=== PATIENT | male | born 1985 | race Caucasian/White ===

== ENCOUNTER 2018-06-03 08:49 | Day surgery (SDC) | payer BC ==
[2018-06-03 09:24] LABS: BASOPHILS % (AUTO) 0.4 %; BILIRUBIN,URINE NEGATIVE (NEGATIVE); EOSINOPHILS # (AUTO) 0.1 10^3/uL (0.0-0.7); EOSINOPHILS % (AUTO) 0.6 %; GLUCOSE, URINE (UA) NEGATIVE (NEGATIVE); HGB - HEMOGLOBIN 15.7 g/dL (14.0-18.0); KETONES,URINE (UA) NEGATIVE (NEGATIVE); LEUKOCYTE ESTERASE, URINE NEGATIVE (NEGATIVE); LYMPHOCYTES # (AUTO) 1.6 10^3/uL (1.5-3.5); LYMPHOCYTES % (AUTO) 16.2 %; MEAN CORPUSCULAR HEMOGLOBIN 31.5 pg (27.0-31.0); MEAN CORPUSCULAR HGB CONC 34.9 g/dL (32.0-36.0); MEAN CORPUSCULAR VOLUME 90.4 fL (80.0-94.0); MONOCYTES # (AUTO) 0.5 10^3/uL (0.0-1.0); MONOCYTES % (AUTO) 5.4 %; NEUTROPHILS # (AUTO) 7.8 10^3/uL (1.5-6.6); NEUTROPHILS % (AUTO) 77.4 %; NITRITE,URINE POSITIVE (NEGATIVE); OCCULT BLOOD,URINE NEGATIVE (NEGATIVE); PLT - PLATELET COUNT 186 10^3/uL (130-450); PROTEIN,URINE NEGATIVE (NEGATIVE); RED BLOOD COUNT 4.96 10^6/uL (4.70-6.10); RED CELL DISTRIBUTION WIDTH 13.8 % (12.0-15.0); UROBILINOGEN,URINE 0.2 (NORMAL) E.U./dL (NORMAL)
[2018-06-03 09:35] LABS: CLARITY,URINE CLEAR (CLEAR)
[2018-06-03 09:38] LABS: BACTERIA,URINE Rare /HPF (None Seen); RBC,URINE None Seen /HPF (0-5); SQUAMOUS EPITHELIAL CELL,UR NONE SEEN (<= Few)
[2018-06-03 09:40] LABS: ALBUMIN 4.7 g/dL (3.2-5.5); ALBUMIN/GLOBULIN RATIO 1.3 (1.0-2.2); BILIRUBIN,TOTAL 0.9 mg/dL (0.2-1.0); CALCIUM 9.4 mg/dL (8.5-10.3); CREATININE 0.9 mg/dL (0.6-1.2); TOTAL PROTEIN 8.4 g/dL (6.7-8.2)
[2018-06-03] MEDS ORDERED: SODIUM CHLORIDE 0.9% 1,000 ML IV ONE ×2 (10:42→13:40)
--- NOTE | 2018-06-03 10:45 | ED Physician Documentation ---
PD HPI ABD PAIN - Stated complaint Stated Complaint: ABD PX - Chief complaint Chief Complaint: Abd Pain - History obtained from History obtained from: Patient - History of Present Illness Timing - onset: How many days ago (2) Timing - duration: Days (2) Timing - details: Gradual onset Quality: Pain Location: RLQ Worsened by: Moving Associated symptoms: Fever. No: Vomiting, Diarrhea, Dysuria Similar symptoms before: Has not had sx before - Additional information Additional information: The patient is an otherwise healthy 32-year-old male who presents with right lower quadrant abdominal pain. 2 days ago he had abdominal discomfort that he described as "indigestion." The pain became worse yesterday and became localized in the right lower quadrant. He had associated fever. Pain continues this morning in the right lower quadrant. He denies nausea, vomiting, diarrhea, or dysuria. The pain is worse with cough or with movement. He last tried eating last night between 8 and 10 PM. He drank a glass of water this morning at 7 AM. He's had no abdominal surgery. He does not smoke cigarettes. Review of Systems Constitutional: reports: Fever Nose: denies: Congestion Throat: denies: Sore throat Cardiac: denies: Chest pain / pressure Respiratory: denies: Dyspnea, Cough GI: reports: Abdominal Pain. denies: Nausea, Vomiting, Diarrhea : denies: Dysuria Skin: denies: Rash Musculoskeletal: denies: Back pain Neurologic: denies: Focal weakness, Headache PD PAST MEDICAL HISTORY - Past Medical History Cardiovascular: None Endocrine/Autoimmune: None GI: None - Present Medications Home Medications: Ambulatory Orders Medication Instructions Recorded Confirmed No Known Home Medications 06/03/18 06/03/18 - Allergies Allergies/Adverse Reactions: Allergies Allergy/AdvReac Type Severity Reaction Status Date / Time No Known Drug Allergies Allergy Verified 06/03/18 09:06 PD ED PE NORMAL - Vitals Vital signs reviewed: Yes (borderline systolic hypertension) - General General: Alert and oriented X 3, Well developed/nourished - HEENT HEENT: Atraumatic, Moist mucous membranes, Pharynx benign - Neck Neck: No adenopathy, No JVD - Cardiac Cardiac: RRR, No murmur - Respiratory Respiratory: No respiratory distress, Clear bilaterally - Abdomen Abdomen: Normal bowel sounds, Soft, No organomegaly, Other (Tenderness to palpation in the right lower quadrant, without rebound.) - Back Back: No CVA TTP - Derm Derm: No rash - Extremities Extremities: No edema, No calf tenderness / cord - Neuro Neuro: Alert and oriented X 3, No motor deficit, Normal speech Results - Vitals Vitals: Vital Signs - 24 hr 06/03/18 06/03/18 06/03/18 09:04 11:33 14:44 Temperature 35.8 C L 36.4 C L 37 C Heart Rate 81 73 71 Respiratory 16 15 16 Rate Blood Pressure 138/71 H 126/66 122/81 H O2 Saturation 99 98 99 06/03/18 06/03/18 06/03/18 14:50 14:53 14:59 Temperature Heart Rate 68 71 Respiratory 17 14 Rate Blood Pressure 135/68 H 131/69 H 133/66 H O2 Saturation 100 100 06/03/18 06/03/18 06/03/18 15:05 15:09 15:15 Temperature Heart Rate 70 70 77 Respiratory 18 14 18 Rate Blood Pressure 129/69 126/68 126/65 O2 Saturation 100 100 99 06/03/18 06/03/18 06/03/18 15:24 15:30 15:45 Temperature 37 C Heart Rate 68 72 62 Respiratory 16 18 15 Rate Blood Pressure 119/64 126/70 127/65 O2 Saturation 97 98 96 06/03/18 16:00 Temperature 36.8 C Heart Rate 76 Respiratory 15 Rate Blood Pressure 124/64 O2 Saturation 99 Oxygen O2 Source Room air - Labs Labs: Laboratory Tests 06/03/18 06/03/18 06/03/18 09:18 09:18 09:18 WBC 10.0 RBC 4.96 Hgb 15.7 Hct 44.9 MCV 90.4 MCH 31.5 H MCHC 34.9 RDW 13.8 Plt Count 186 MPV 9.0 Neut # (Auto) 7.8 H Lymph # (Auto) 1.6 [place] # (Auto) 0.5 Eos # (Auto) 0.1 Baso # (Auto) 0.0 Absolute Nucleated RBC 0.00 Nucleated RBC % 0.0 Sodium 139 Potassium 3.9 Chloride 102 Carbon Dioxide 28 Anion Gap 9.0 BUN 14 Creatinine 0.9 Estimated GFR (MDRD) 97 Glucose 102 H Calcium 9.4 Total Bilirubin 0.9 AST 22 ALT 21 Alkaline Phosphatase 58 Total Protein 8.4 H Albumin 4.7 Globulin 3.7 Albumin/Globulin Ratio 1.3 Lipase 25 Urine Color YELLOW Urine Clarity CLEAR Urine pH 6.0 Ur Specific [place] <=1.005 Urine Protein NEGATIVE Urine Glucose (UA) NEGATIVE Urine Ketones NEGATIVE Urine Occult Blood NEGATIVE Urine Nitrite POSITIVE H Urine Bilirubin NEGATIVE Urine Urobilinogen 0.2 (NORMAL) Ur Leukocyte Esterase NEGATIVE Urine RBC None Seen Urine WBC 0-3 Ur Squamous Epith Cells NONE SEEN Urine Bacteria Rare Ur Microscopic Review INDICATED Urine Culture Comments INDICATED - Rads (name of study) CT abd/pelvis Radiology: Prelim report reviewed, EMP read contemporaneously, See rad report (Acute appendicitis with a 5-6 mm appendicolith in the proximal appendix. No abscess or free air.) PD MEDICAL DECISION MAKING - ED course Complexity details: reviewed results, re-evaluated patient, considered differential, d/w patient, d/w business sales consultant ED course: The patient's presentation is significant for acute appendicitis, without abscess or perforation seen on CT scan of the abdomen. Treatment in the emergency department included administration of normal saline IV, and Zosyn 3.375 g IV. He declined treatment with pain medication or antiemetic. I discussed his condition with Dr. Vidal who is on-call for general surgery. He evaluated the patient in the emergency department and took him to the operating room for operative intervention. Departure - Departure Disposition: ED Transfer to [facility] Clinical Impression: Acute appendicitis Qualifiers: Acute appendicitis type: unspecified acute appendicitis type Qualified Code(s): K35.80 - Unspecified acute appendicitis Condition: Stable Discharge Date/Time: 06/03/18 13:42
[2018-06-03] MEDS ORDERED: IOPAMIDOL-300 100 ML VIAL ONE (10:56)
[2018-06-03] MEDS ORDERED: IOPAMIDOL-300 100 ML VIAL IVP ONE (11:09)
--- NOTE | 2018-06-03 11:44 | CT Report ---
Reason: RLQ abdominal pain Procedure Date: 06/03/2018 Accession Number: [id number] / [id number] Procedure: CT - Abdomen/Pelvis W/ CPT Code: FULL RESULT: EXAM: CT ABDOMEN AND PELVIS EXAM DATE: 06/03/2018 11:10 AM. CLINICAL HISTORY: Right lower quadrant pain and fever. COMPARISONS: None. TECHNIQUE: Routine helical CT imaging was performed through the abdomen and pelvis. IV contrast: ISOVUE 300 100mL. Enteric contrast: No. Reconstructions: Coronal and sagittal. In accordance with CT protocol optimization, one or more of the following dose reduction techniques were utilized for this exam: automated exposure control, adjustment of mA and/or KV based on patient size, or use of iterative reconstructive technique. FINDINGS: Lung Bases: Unremarkable. Liver: Normal. No masses. Gallbladder/Bile Ducts: Unremarkable. Spleen: Normal. Pancreas: Normal. Adrenal Glands: Normal. Kidneys: Normal. No masses or hydronephrosis. Peritoneal Cavity/Bowel: Stomach is mildly distended and unremarkable. No small bowel obstruction. No free air. Small fatty umbilical hernia. Small volume of stool in the colon. Appendix is enlarged measuring up to 10-11 mm with appendiceal wall enhancement and periappendiceal edema. There is an appendicolith proximally measuring in overall length 5-6 mm. No evidence of periappendiceal abscess or free air. Pelvic Organs: Normal. The bladder and visualized pelvic organs are within normal limits. Vasculature: No aneurysms or other significant abnormality. Bones: No significant abnormality. Other: None. IMPRESSION: 1. Acute appendicitis containing a 5-6 mm appendicolith in the proximal appendix. No evidence of periappendiceal abscess or free air. RADIA
[2018-06-03] MEDS ORDERED: PIPERACILLIN/TAZOBACTAM 3.375 GM in SODIUM CHLORIDE 0.9% MINIBAG 100 ML IV STA (12:11)
--- NOTE | 2018-06-03 13:11 | ANESTHESIA ---
Pre-Anesthesia VS, & Labs - Diagnosis appendicitis - Procedure laparoscopic appendectomy Vital Signs: Temp Pulse Resp BP Pulse Ox 36.4 C L 73 15 126/66 98 06/03/18 11:33 06/03/18 11:33 06/03/18 11:33 06/03/18 11:33 06/03/18 11:33 Height 5 ft 6 in Weight (kg) 65.771 kg Body Mass Index 23.3 - NPO >8 hours - Lab Results Current Lab Results: Laboratory Tests 06/03/18 09:18: Sodium 139, Potassium 3.9, Chloride 102, Carbon Dioxide 28, Anion Gap 9.0, BUN 14, Creatinine 0.9, Estimated GFR (MDRD) 97, Glucose 102 H, Calcium 9.4, Total Bilirubin 0.9, AST 22, ALT 21, Alkaline Phosphatase 58, Total Protein 8.4 H, Albumin 4.7, Globulin 3.7, Albumin/Globulin Ratio 1.3, Lipase 25 06/03/18 09:18: WBC 10.0, RBC 4.96, Hgb 15.7, Hct 44.9, MCV 90.4, MCH 31.5 H, MCHC 34.9, RDW 13.8, Plt Count 186, MPV 9.0, Neut # (Auto) 7.8 H, Lymph # (Auto) 1.6, [place] # (Auto) 0.5, Eos # (Auto) 0.1, Baso # (Auto) 0.0, Absolute Nucleated RBC 0.00, Nucleated RBC % 0.0 Fish Bones: 06/03/18 09:18 06/03/18 09:18 Home Medications and Allergies Home Medications: Ambulatory Orders No Known Home Medications 06/03/18 Active Medications Sodium Chloride (Normal Saline 0.9%) 1,000 mls @ 250 mls/hr IV .Q4H ONE Stop: 06/03/18 14:41 Last Admin: 06/03/18 12:29 Dose: 250 mls/hr No Known Home Medications 06/03/18 Allergies/Adverse Reactions: Allergies Allergy/AdvReac Type Severity Reaction Status Date / Time No Known Drug Allergies Allergy Verified 06/03/18 09:06 Anes History & Medical History - Anesthetic History Anesthesia Complications: reports: Post-Operative Nausea/Vomiting - Medical History Cardiovascular: reports: None Gastrointestinal: reports: None Endocrine/Autoimmune: reports: None Smoking Status: Never smoker Psychosocial: reports: Alcohol (2 beers some weekends) Exam General: Alert Dental: WNL Mouth Opening: Greater than 4 Fingerbreadths Mallampati classification: III Respiratory: Lungs clear Cardiovascular: Regular rate, Normal S1, Normal S2 Plan Anesthesia Type: General Consent for Procedure(s) Verified and Reviewed: Yes Code Status: Attempt Resuscitation ASA classification: 1-Healthy patient Is this case an emergency?: Yes
[2018-06-03] MEDS ORDERED: BUPIVACAINE 0.5%-EPI 1:200000 PF 30 ML VIAL ONE (13:23)
[2018-06-03] MEDS ORDERED: BUPIVACAINE 0.5%-EPI 1:200000 PF 30 ML VIAL SUBQ ONE ×2 (14:17)
--- NOTE | 2018-06-03 14:44 | IMMEDIATE POSTOPERATIVE NOTE ---
Immediate Postoperative Note - Procedure Note Procedure Date: 06/03/18 Pre-Op Diagnosis: appendicitis Procedure: lap appy Post-Op Diagnosis: same Primary Surgeon: dontae Anesthesia Type: General ET tube Complications: No complications Estimated Blood Loss (in cc): 10 Plan of Care: discharge home and follow up in 1-2 weeks in clinic.
[2018-06-03] MEDS ORDERED: ACETAMINOPHEN 1,000 MG/100 ML 100 ML IV ONE ×2 (14:49→14:50)
[2018-06-03] MEDS ORDERED: MEPERIDINE 50 MG/ML VIAL ONE (14:49)
[2018-06-03] MEDS ORDERED: KETOROLAC 30 MG/ML VIAL IVP ONE (14:50)
[2018-06-03] MEDS ORDERED: ONDANSETRON 4 MG/2 ML VIAL IVP ONE (14:50)
[2018-06-03] MEDS ORDERED: PROPOFOL 200 MG/20 ML VIAL IVP ONE (14:50)
[2018-06-03] MEDS ORDERED: MIDAZOLAM 2 MG/2 ML VIAL IVP ONE (14:50)
[2018-06-03] MEDS ORDERED: LIDOCAINE-MPF 2% 5 ML VIAL IM ONE (14:50)
[2018-06-03] MEDS ORDERED: fentaNYL 100 MCG/2 ML VIAL IVP ONE (14:50)
[2018-06-03] MEDS ORDERED: DEXAMETHASONE 4 MG/ML VIAL IVP ONE (14:50)
[2018-06-03] MEDS ORDERED: ROCURONIUM 50 MG/5 ML VIAL IVP ONE (14:50)
[2018-06-03] MEDS ORDERED: HYDROcod/ACETAM 5/325 MG TABLET PO PRN (14:54)
[2018-06-03] MEDS ORDERED: HYDROmorphone 1 MG/ML CARPUJECT ONE (15:02)
[2018-06-03 16:13] VITALS: BP 124/64
--- NOTE | 2018-06-03 16:58 | OPERATIVE REPORT ---
DATE OF SERVICE: 06/03/2018 Physician: Vikram Vidal MD PREOPERATIVE DIAGNOSIS: Acute appendicitis. POSTOPERATIVE DIAGNOSIS: Acute appendicitis. PROCEDURE PERFORMED: Laparoscopic appendectomy. INDICATIONS FOR PROCEDURE: The patient is a 32-year-old man, otherwise healthy, who presented to the emergency room complaining of 2 days of abdominal pain. He was diagnosed with acute appendicitis. PROCEDURE IN DETAIL: The risks and benefits of the procedure were explained to the patient. He agre ed to the procedure and was taken to the operating room and placed under general anesthesia and intub ated. The abdomen was prepped and draped. A timeout was performed. Everyone in the room agreed to the procedure. He had already received antibiotics in the emergency room and was not given more in t he OR. We begun making a 12-mm supraumbilical incision. We carried this down inside the peritoneal cavity, inserted Nilo trocar and secured in place. We insufflated the abdomen to 15 mmHg and then generally inspected using the camera. No gross abnormalities were seen. We then inserted two 5-mm t rocars under vision of the camera, 1 above the pubic symphysis and 1 in the left lower quadrant. The appendix was then identified. It was found to be moderately inflamed in its distal half. It was ea sily dissected free from surrounding structures, and a window was created between the mesoappendix an d the appendiceal lumen at the cecum. A blue load of the DIMITRIS stapler was then used to transect the a ppendiceal body flush with the cecum, and a white load was then used to transect the mesoappendix. T he appendix was then placed in an EndoCatch bag. The staple lines were examined and found to be inta ct in good position and free of residual bleeding. The appendix was then removed and sent to patholo . The 3 trocars were removed under vision of the camera. The umbilical port site fascia was close d, using 0 Vicryl stitch, and the skin of all 3 incisions was closed, using 4-0 Monocryl with Dermabo nd. Local anesthetic was infused prior to closure. This terminated the procedure. COMPLICATIONS: None. ESTIMATED BLOOD LOSS: 10 mL. SPECIMEN: Appendix. PLAN: The plan is for the patient to go home later today. TD: 06/03/2018 15:57
== END 2018-06-03 13:31 | disposition home or self-care (01) ==
LOC: ED 08:49 → SDS 13:30
PROVIDERS: ATTEND Surgery
PROC: 0DTJ4ZZ Resection of Appendix, Percutaneous Endoscopic Approach (ICD-10-PCS; principal; 2018-06-03 13:30)
DX: K35.80 Unspecified acute appendicitis (principal)
CPT/HCPCS: 36415; 44970; 74177; 80053; 81001; 83690; 85025; 87086; 96365; 99283; 99284; J0131; J1170; Q9967; 81003

== ENCOUNTER 2021-08-27 07:28 | Day surgery (SDC) | payer OTHER ==
[~2021-08-27 07:28] MED LIST: CEFAZOLIN SODIUM IN 0.9 % NACL 2 GM/100 ML BAG IV ONE
[2021-08-27] MEDS ORDERED: LACTATED RINGERS 1,000 ML IV ONE ×2 (08:09→10:11)
[2021-08-27] MEDS ORDERED: fentaNYL 100 MCG/2 ML VIAL IVP PRN (08:30)
[2021-08-27] MEDS ORDERED: ONDANSETRON 4 MG/2 ML VIAL IVP PRN (08:30)
[2021-08-27] MEDS ORDERED: NALOXONE 0.4 MG/ML VIAL IVP PRN (08:30)
[2021-08-27] MEDS ORDERED: ePHEDrine 50 MG/ML VIAL IVP PRN (08:30)
[2021-08-27] MEDS ORDERED: METOCLOPRAMIDE 10 MG/2 ML VIAL IVP PRN (08:30)
[2021-08-27] MEDS ORDERED: ATROPINE ABBOJECT 1 MG/10 ML SYRINGE IVP PRN (08:30)
[2021-08-27] MEDS ORDERED: MORPHINE 2 MG/ML CARPUJECT IVP PRN (08:30)
[2021-08-27] MEDS ORDERED: HYDROmorphone 0.5 MG/0.5 ML SYRINGE IVP PRN (08:30)
--- NOTE | 2021-08-27 08:30 | ANESTHESIA ---
Pre-Anesthesia VS, & Labs - Diagnosis ventral hernia - Procedure open ventral hernia repair with mesh Vital Signs: Temp Pulse Resp BP Pulse Ox 36.9 C 71 12 122/64 100 08/27/21 08:04 08/27/21 08:04 08/27/21 08:04 08/27/21 08:04 08/27/21 08:04 Height: 5 ft 6 in Weight (kg): 69 kg Body Mass Index: 24.5 BMI Classification: Healthy weight - NPO >8 hours Home Medications and Allergies Home Medications: Ambulatory Orders Ibuprofen 200 mg PO DAILY PRN 08/13/21 Ibuprofen 200 mg PO DAILY PRN 08/13/21 Allergies/Adverse Reactions: Allergies Allergy/AdvReac Type Severity Reaction Status Date / Time No Known Drug Allergies Allergy Verified 06/03/18 09:06 Anes History & Medical History - Anesthetic History Anesthesia Complications: reports: No previous complications Family history of Anesthesia Complications: Denies Family history of Malignant Hyperthermia: Denies - Medical History Cardiovascular: reports: None Pulmonary: reports: None Gastrointestinal: reports: None Urinary: reports: None Musculoskeletal: reports: None Endocrine/Autoimmune: reports: None Skin: reports: None Smoking Status: Never smoker History of Cancer?: No - Surgical History General: reports: Appendectomy Exam General: Alert, Oriented x3, Cooperative Dental: WNL Mouth Opening: Greater than 4 Fingerbreadths Neck Mobility: Normal Mallampati classification: II Thyromental Distance: 4-6 cm Respiratory: Lungs clear, Normal breath sounds, No respiratory distress Cardiovascular: Regular rate Neurological: Normal speech Mental/Cognitive Status: Alert/Oriented X3, Normal for patient Cognitive Status: Within normal limits Plan Anesthesia Type: General Consent for Procedure(s) Verified and Reviewed: Yes Code Status: Attempt Resuscitation ASA classification: 1-Healthy patient Is this case an emergency?: No
--- NOTE | 2021-08-27 08:36 | HISTORY & PHYSICAL EXAMINATION ---
Chief Complaint - Chief Complaint Chief Complaint: hernia bulge History of Present Illness - History Obtained From Records Reviewed: yes History obtained from: pt Exam Limitations: none - History of Present Illness HPI Comment/Other: Hernia bulge cephalad of the umbilicus. History laparoscopic appendectomy. History - Past Medical History Cardiovascular: reports: None Respiratory: reports: None Endocrine/Autoimmune: reports: None GI: reports: None : reports: None Psych: reports: None Musculoskeletal: reports: None Derm: reports: None MRSA Hx?: No - Past Surgical History General: reports: Appendectomy Meds/Allgy - Home Medications Home Medications: Ambulatory Orders Medication Instructions Recorded Confirmed Ibuprofen 200 mg PO DAILY PRN 08/13/21 08/13/21 - Allergies Allergies/Adverse Reactions: Allergies Allergy/AdvReac Type Severity Reaction Status Date / Time No Known Drug Allergies Allergy Verified 06/03/18 09:06 Review of Systems - Other Findings Other Findings: 10 pt ros as above otherwise unremarkable Exam - Vital Signs Reviewed Vital Signs: Yes Vital Signs: Vital Signs x48h Temp Pulse Resp BP Pulse Ox 08/27/21 08:04 36.9 C 71 12 122/64 100 - Physical Exam General Appearance: positive: Alert Eyes Bilateral: positive: PERRL, EOMI ENT: positive: No signs of dehydration Neck: positive: No JVD Respiratory: positive: No respiratory distress, Breath sounds nml Cardiovascular: positive: Regular rate & rhythm Abdomen: positive: Non-tender, No distention, Other (2 cm incisional hernia cephalad of his umbilicus) Neurologic/Psychiatric: positive: Oriented x3 Conclusion/Plan - Problem List (1) Incisional hernia Conclusion/Plan: hernia cephalad of his umbilicus. getting worse and at times he clinically has to reduce small bowel. plan open repair with mesh. parq held and consent obtained
[2021-08-27] MEDS ORDERED: BUPIVACAINE 0.5% PF 10 ML VIAL ONE ×3 (08:40→09:32)
[2021-08-27] MEDS ORDERED: MIDAZOLAM 2 MG/2 ML VIAL ONE (08:41)
[2021-08-27] MEDS ORDERED: PROPOFOL 200 MG/20 ML VIAL IVP ONE (08:42)
[2021-08-27] MEDS ORDERED: LIDOCAINE-MPF 2% 5 ML VIAL ONE (08:42)
[2021-08-27] MEDS ORDERED: LACTATED RINGERS 1,000 ML IV SCH (09:00)
[2021-08-27] MEDS ORDERED: KETOROLAC 30 MG/ML VIAL ONE (09:05)
[2021-08-27] MEDS ORDERED: BUPIVACAINE 0.5% PF 10 ML VIAL IM ONE ×3 (09:05)
[2021-08-27] MEDS ORDERED: ONDANSETRON 4 MG/2 ML VIAL ONE (09:05)
[2021-08-27] MEDS ORDERED: DEXAMETHASONE 4 MG/ML VIAL ONE (09:05)
[2021-08-27] MEDS ORDERED: HYDROcod/ACETAM 5/325 MG TABLET PO PRN (10:12)
--- NOTE | 2021-08-27 10:23 | OPERATIVE REPORT ---
Operative Report - General Procedure Date: 08/27/21 Planned Procedure: open repair incisional/ ventral hernia with mesh Pre-Op Diagnosis: painful incisional hernia Procedure Performed: open repair incisional hernia with mesh Post Op Diagnosis: same - Procedure Note Primary Surgeon: mack keane Anesthesia Technique: General LMA, Local Pathology: none Estimated Blood Loss (mL): 2 Drain/Tube Type: Other (none) Indications: painful hernia bulge Findings: 2.5 cm incisional hernia 1 cm cephalad of a 5 mm umbilical hernia Complications: none - Other Other Information/Narrative: The patient was properly identified brought to the operating room and placed in supine position. Sequential compression devices were placed. General anesthesia was induced. The patient was prepped and draped in a sterile fashion and given preoperative antibiotics. Local anesthetic was given throughout the procedure. A supraumbilical incision was made. Incision was continued left lateral of the umbilicus. Dissection proceeded sharply. Subcutaneous tissue was mobilized away from the fascial defect by 2 to 3 cm in all directions. Umbilical skin was sharply excised away from the hernia sac or peritoneum. The small bridge of fascia between the incisional hernia and the umbilical hernia was released. The peritoneum was then carefully released from the fascial defe ct edge with cutting current cautery. A preperitoneal space was developed for mesh placement. Polypropylene mesh was cut to size approximately 2 x 3 inches and placed preperitoneal. The mesh was secured with 12 interrupted 0 Ethibond sutures. The mesh lay in good position without tension. Fascia was then closed over the mesh wtih O ethibond. Subcutaneous tissue was reapproximated with interrupted 2-0 Vicryl suture. Umbilical skin was tacked back down to fascia with interrupted 2-0 Vicryl suture. Buried interrupted subdermal 3-0 Vicryl sutures were then placed. Skin was closed with a running 4-0 Monocryl subcuticular suture. Skin glue was applied as a dressing given his rash to adhesives. Patient tolerated the procedure the procedure well was awakened and brought to recovery in good condition.
[2021-08-27] MEDS ORDERED: HYDROcod/ACETAM 5/325 MG TABLET ONE (11:03)
[2021-08-27 11:32] VITALS: BP 104/63
--- NOTE | 2021-08-27 11:34 | ANESTHESIA POST OP EVALUATION ---
Anesthesia Post Eval - Post Anesthesia Eval Vitals: Last Vital Signs Temp 36.5 C 08/27/21 11:15 Pulse 60 08/27/21 11:15 Resp 16 08/27/21 11:15 BP 104/63 08/27/21 11:15 Pulse Ox 100 08/27/21 11:15 CV Function Including HR & BP: Stable Pain Control: Satisfactory Nausea & Vomiting: Negative Mental Status: Baseline Respiratory Status: Airway Patent Hydration Status: Satisfactory Anesthesia Complications: None
== END 2021-08-27 07:29 | disposition home or self-care (01) ==
LOC: SDS 07:28
PROVIDERS: ATTEND Surgery
DX: K43.2 Incisional hernia without obstruction or gangrene (principal)
CPT/HCPCS: 49560; 49568; A9270; C1781; J0690; J7120